=== PATIENT | male | born 1960 | race Caucasian/White ===

== ENCOUNTER 2018-08-21 06:19 | Inpatient (IN) | payer MEDICARE, MEDICAID ==
[~2018-08-21] VITALS: Ht 157.5 cm; Wt 53.3 kg
[2018-08-21 12:55] VITALS: BP 107/72
[2018-08-21 13:04] VITALS: BP 107/72
[2018-08-21] MEDS ORDERED: ONDANSETRON 2MG/ML, 2ML IVPush PRN (13:30)
[2018-08-21] MEDS: SODIUM CHLORIDE 0.9% 1,000 ML IV SCH ×4 (13:30→22:36)
[2018-08-21] MEDS: NICOTINE 14MG/24 HR PATCH.TD24 TD SCH (14:00)
[2018-08-21] MEDS: TAMSULOSIN 0.4 MG CAP.ER.24H PO SCH (14:00)
[2018-08-21] MEDS ORDERED: hydrALAzine 20 MG/ML, 1ML IVPush PRN (14:00)
[2018-08-21 14:33] LABS: HCT (SEDRATE) 35.9 % (39.2-51.8)
[2018-08-21 14:49] LABS: C-REACTIVE PROTEIN, QUANT 1.3 mg/dL (0.02-0.49)
[2018-08-21] MEDS: MORPHINE SULFATE 4 MG/ML, 1ML IVPush PRN ×2 (17:15→22:35)
[2018-08-21 19:10] VITALS: BP 98/61
[2018-08-21] MEDS: PANTOPRAZOLE 40 MG IV IVPush SCH (20:01)
[2018-08-22 01:08] VITALS: BP 95/55
[2018-08-22] MEDS: SODIUM CHLORIDE 0.9% 1,000 ML IV SCH ×6 (05:30→21:08)
[2018-08-22 06:39] LABS: CALCIUM 8.4 mg/dL (8.5-10.1); CHLORIDE 112 mmol/L (98-107)
[2018-08-22 06:42] LABS: BASOPHILS # (AUTO) 0.02 x10^3/uL (0-0.1); BASOPHILS % (AUTO) 0 % (0-1); EOSINOPHILS # (AUTO) 0.02 x10^3/uL (0-0.4); EOSINOPHILS % (AUTO) 0 % (1-7); LYMPHOCYTES # (AUTO) 0.78 x10^3/uL (1-3.4); LYMPHOCYTES % (AUTO) 11 % (22-44); MD SCAN; MEAN CORPUSCULAR HEMOGLOBIN 28.5 pg (27.5-34.5); MEAN CORPUSCULAR HGB CONC 33.3 g/dL (33.2-36.2); MEAN CORPUSCULAR VOLUME 85.3 fL (81-97); MEAN PLATELET VOLUME 8.2 fL (7.4-10.4); MONOCYTES # (AUTO) 0.19 x10^3/uL (0.2-0.8); MONOCYTES % (AUTO) 3 % (2-9); NEUTROPHILS # (AUTO) 6.07 x10^3/uL (1.8-6.8); NEUTROPHILS % (AUTO) 86 % (42-75); PLATELET COUNT 125 x10^3/uL (130-400); RED BLOOD COUNT 4.99 x10^6/uL (4.38-5.82); RED CELL DISTRIBUTION WIDTH 14.4 % (9.4-14.8)
[2018-08-22 06:45] LABS: ALANINE AMINOTRANSFERASE 33 U/L (12-78); ALKALINE PHOSPHATASE 102 U/L (45-117); ANION GAP 7 mmol/L (5-15); BILIRUBIN,TOTAL 0.6 mg/dL (0.2-1.0); CREATININE 0.46 mg/dL (0.7-1.3); TOTAL PROTEIN 6.8 g/dL (6.4-8.2)
[2018-08-22] MEDS: MORPHINE SULFATE 4 MG/ML, 1ML IVPush PRN ×2 (07:32→12:36)
[2018-08-22 07:58] VITALS: BP 106/57
[2018-08-22] MEDS: TAMSULOSIN 0.4 MG CAP.ER.24H PO SCH (09:00)
[2018-08-22] MEDS: PANTOPRAZOLE 40 MG IV IVPush SCH ×2 (09:00→20:58)
[2018-08-22 13:07] VITALS: BP 93/52
[2018-08-22] MEDS: NICOTINE 14MG/24 HR PATCH.TD24 TD SCH (14:00)
[2018-08-22 20:19] VITALS: BP 93/60
[2018-08-23 02:27] VITALS: BP 95/58
[2018-08-23] MEDS: SODIUM CHLORIDE 0.9% 1,000 ML IV SCH ×4 (04:40→13:34)
[2018-08-23 05:31] LABS: BASOPHILS # (AUTO) 0.02 x10^3/uL (0-0.1); BASOPHILS % (AUTO) 1 % (0-1); EOSINOPHILS # (AUTO) 0.22 x10^3/uL (0-0.4); EOSINOPHILS % (AUTO) 6 % (1-7); LYMPHOCYTES # (AUTO) 0.79 x10^3/uL (1-3.4); LYMPHOCYTES % (AUTO) 20 % (22-44); MD NO; MEAN CORPUSCULAR HEMOGLOBIN 29.7 pg (27.5-34.5); MEAN CORPUSCULAR HGB CONC 34.5 g/dL (33.2-36.2); MEAN CORPUSCULAR VOLUME 86.2 fL (81-97); MEAN PLATELET VOLUME 8.2 fL (7.4-10.4); MONOCYTES # (AUTO) 0.38 x10^3/uL (0.2-0.8); MONOCYTES % (AUTO) 10 % (2-9); NEUTROPHILS # (AUTO) 2.49 x10^3/uL (1.8-6.8); NEUTROPHILS % (AUTO) 64 % (42-75); PLATELET COUNT 122 x10^3/uL (130-400); RED BLOOD COUNT 3.77 x10^6/uL (4.38-5.82); RED CELL DISTRIBUTION WIDTH 14.1 % (9.4-14.8)
[2018-08-23 05:50] LABS: ALBUMIN 2.2 g/dL (3.4-5.0); ANION GAP 5 mmol/L (5-15); CALCIUM 7.2 mg/dL (8.5-10.1); CHLORIDE 116 mmol/L (98-107)
[2018-08-23 05:54] LABS: ALANINE AMINOTRANSFERASE 21 U/L (12-78); ALKALINE PHOSPHATASE 64 U/L (45-117); BILIRUBIN,TOTAL 0.4 mg/dL (0.2-1.0); CREATININE 0.55 mg/dL (0.7-1.3); TOTAL PROTEIN 4.9 g/dL (6.4-8.2)
[2018-08-23 06:55] VITALS: BP 96/60
[2018-08-23] MEDS: TAMSULOSIN 0.4 MG CAP.ER.24H PO SCH (07:37)
[2018-08-23] MEDS: PANTOPRAZOLE 40 MG IV IVPush SCH (07:37)
[2018-08-23] MEDS ORDERED: POTASSIUM PHOSPHATE 44 MEQ in SODIUM CHLORIDE 0.9% 500 ML IV ONE (11:35)
[2018-08-23 12:08] VITALS: BP 98/53
[2018-08-23] MEDS: NICOTINE 14MG/24 HR PATCH.TD24 TD SCH (14:00)
[2018-08-23] MEDS ORDERED: NICO-486 TD (16:14)
[2018-08-23] MEDS ORDERED: TRAM50TA2 PO (16:14)
[2018-08-23] MEDS ORDERED: PHOS250T3 PO (16:14)
[2018-08-23] MEDS ORDERED: MAGN400T26 PO (16:14)
[2018-08-23] MEDS ORDERED: OMEP-110 PO (16:14)
== END 2018-08-23 18:28 | disposition home or self-care (01) | DRG 388 ==
LOC: INTOOBSV 11:45 → 4NOR 11:45 → OBSVTOIN 08-22 11:43
PROVIDERS: ADMIT Internal Medicine; ATTEND Internal Medicine
PROC: 0T9B70Z Drainage of Bladder with Drainage Device, Via Natural or Artificial Opening (ICD-10-PCS; principal; 2018-08-22)
DX: K56.609 Unspecified intestinal obstruction, unspecified as to partial versus complete obstruction (principal); E43 Unspecified severe protein-calorie malnutrition; E83.39 Other disorders of phosphorus metabolism; F10.21 Alcohol dependence, in remission; R33.9 Retention of urine, unspecified; K86.89 Other specified diseases of pancreas; Z90.49 Acquired absence of other specified parts of digestive tract; Z93.2 Ileostomy status; Z98.41 Cataract extraction status, right eye; Z98.42 Cataract extraction status, left eye; Z87.891 Personal history of nicotine dependence; Z68.21 Body mass index [BMI] 21.0-21.9, adult
CPT/HCPCS: 36415; 74018; 74021; 80053; 83605; 83735; 84100; 84145; 84443; 85025; 85651; 86140; G0378; C9113; J7030; J7040